=== PATIENT | female | born 1985 | race Caucasian/White ===

== ENCOUNTER 2016-12-22 | Outpatient (CLI) | payer MEDICAID | END 2016-12-22 13:45 | disposition home or self-care (01) | DX: E03.9 Hypothyroidism, unspecified (principal) ==

== ENCOUNTER 2016-12-23 10:02 | Outpatient (CLI) | payer MEDICAID | END 2016-12-23 10:03 | disposition home or self-care (01) | DX: E03.9 Hypothyroidism, unspecified (principal); F32.9 Major depressive disorder, single episode, unspecified; G47.30 Sleep apnea, unspecified; M54.9 Dorsalgia, unspecified; C71.9 Malignant neoplasm of brain, unspecified; E43 Unspecified severe protein-calorie malnutrition; R06.83 Snoring ==

== ENCOUNTER 2017-02-12 21:21 | Emergency (ER) | payer MEDICAID ==
[2017-02-12] MEDS ORDERED: CEPHALEXIN 250 MG CAPSULE PO STA (22:26)
[2017-02-12] MEDS ORDERED: CEPHALEXIN 250 MG CAPSULE PO ONE (22:27)
== END 2017-02-12 23:10 | disposition home or self-care (01) ==
DX: S92.425B Nondisplaced fracture of distal phalanx of left great toe, initial encounter for open fracture (principal); X50.1XXA Overexertion from prolonged static or awkward postures, initial encounter; R03.0 Elevated blood-pressure reading, without diagnosis of hypertension; G62.89 Other specified polyneuropathies; M21.372 Foot drop, left foot; G40.909 Epilepsy, unspecified, not intractable, without status epilepticus
CPT/HCPCS: 73630; 81025; 99283; A9270